=== PATIENT | female | born 1975 | race Hispanic/Latino ===

== ENCOUNTER 2017-07-10 01:18 | Emergency (ER) | payer MEDICAID ==
[2017-07-10] MEDS ORDERED: GENTAMICIN SULFATE 0.3% 5ML DROPS ONE (01:42)
== END 2017-07-10 01:53 | disposition home or self-care (01) ==
LOC: EDH 01:18
DX: H10.403 Unspecified chronic conjunctivitis, bilateral (principal); Z72.0 Tobacco use

== ENCOUNTER → 2018-05-27 | Outpatient (CLI) | payer MEDICAID | END | disposition home or self-care (01) | LOC: SLP 20:12 | PROVIDERS: ATTEND Family Medicine | DX: G47.30 Sleep apnea, unspecified (principal); R06.83 Snoring | CPT/HCPCS: 95810 ==

== ENCOUNTER → 2018-06-03 | Outpatient (CLI) | payer MEDICAID | END | disposition home or self-care (01) | LOC: SLP 20:06 | PROVIDERS: ATTEND Family Medicine | DX: G47.30 Sleep apnea, unspecified (principal); G47.00 Insomnia, unspecified; G47.9 Sleep disorder, unspecified | CPT/HCPCS: 95811 ==